=== PATIENT | female | born 1995 | race Hispanic/Latino ===

== ENCOUNTER 2017-04-11 12:13 | Emergency (ER) | payer SELFPAY ==
[2017-04-11 13:23] LABS: #Eosinphils 0.2 thou/uL (0.0-0.7); #Lymphocytes 2.4 thou/uL (1.20-3.40); #Monocytes 0.5 thou/uL (0.11-0.59); #Neutrophils 5.7 thou/uL (1.40-6.50); %Basophils 0.6 % (0.0-1.0); %Eosinophils 2.1 % (0.0-10.0); %Lymphocytes 27.5 % (21.0-51.0); %Monocytes 5.4 % (0.0-10.0); Hematocrit 48.2 % (36.0-47.0); Mean Platelet Volume 7.1 fL (7.4-10.4); Red Blood Cell (RBC) Count 5.41 mill/uL (4.20-5.40); White Blood Cell (WBC) Count 8.8 thou/uL (4.8-10.8)
[2017-04-11 13:46] LABS: Anion Gap 11 mmol/L (10-20); BUN (Urea Nitrogen) 8 mg/dL (7.0-18.7); Calc. Creatinine Clearance 0 mL/min (70-130); Calcium 9.6 mg/dL (7.8-10.44); Carbon Dioxide 25 mmol/L (22-29); Chloride 99 mmol/L (98-107); Estimated GFR-MDRD Greater than 90; Lipase 36 U/L (8-78)
[2017-04-11 13:54] LABS: Bilirubin Negative (Negative); Blood, Urine Large (Negative); Glucose, Urine (Dipstick) >=1000 mg/dL (Negative); Ketone, Urine Trace mg/dL (Negative); Nitrite Positive (Negative); Protein, Urine (Dipstick) 30 mg/dL (Neg-Trace); Urobilinogen 0.2 mg/dL (0.2-1.0)
[2017-04-11 14:00] LABS: Bacteria/HPF 3+ HPF (None Seen); Hyaline Casts/LPF 0-3 HYALINE CAST LPF (0-3 Hyaline); RBC/HPF GREATER THAN 50-TNTC HPF (0-3); Squamous Epithelial 0-3 HPF (0-3); WBC/HPF 21-50 HPF (0-3)
== END 2017-04-11 16:35 | disposition home or self-care (01) ==
LOC: ERS 12:13
DX: N39.0 Urinary tract infection, site not specified (principal); E10.9 Type 1 diabetes mellitus without complications; F41.9 Anxiety disorder, unspecified; F32.9 Major depressive disorder, single episode, unspecified; Z79.4 Long term (current) use of insulin
CPT/HCPCS: 80048; 81003; 81015; 83690; 84703; 85025; 87480; 87491; 87510; 87591; 87660; 96360

== ENCOUNTER 2017-05-24 00:11 | Emergency (ER) | payer SELFPAY ==
[2017-05-24 00:55] LABS: #Basophils 0.1 thou/uL (0.0-0.2); #Eosinphils 0.2 thou/uL (0.0-0.7); #Lymphocytes 2.8 thou/uL (1.20-3.40); #Monocytes 0.5 thou/uL (0.11-0.59); #Neutrophils 5.3 thou/uL (1.40-6.50); %Eosinophils 2.2 % (0.0-10.0); %Lymphocytes 31.5 % (21.0-51.0); %Monocytes 5.9 % (0.0-10.0); %Neutrophils 59.3 % (42.0-75.0); Hemoglobin 15.5 g/dL (12.0-16.0); Mean Corpuscular HGB CONC 34.4 g/dL (32.0-36.0); Mean Corpuscular Hemoglobin 30.8 pg (27.0-31.0); Mean Corpuscular Volume 89.6 fl (81.0-99.0); Mean Platelet Volume 7.7 fL (7.4-10.4); Platelet Count 263 thou/uL (130-400); RBC Distribution Width 11.4 % (11.5-14.5); Red Blood Cell (RBC) Count 5.01 mill/uL (4.20-5.40); White Blood Cell (WBC) Count 8.9 thou/uL (4.8-10.8)
[2017-05-24 01:10] LABS: ALT (SGPT) 17 U/L (8-55); AST (SGOT) 14 U/L (5-34); Albumin 4.3 g/dL (3.5-5.0); Alkaline Phosphatase 135 U/L (40-150); Anion Gap 15 mmol/L (10-20); BUN (Urea Nitrogen) 8 mg/dL (7.0-18.7); Bilirubin, Total 0.4 mg/dL (0.2-1.2); Calc. Creatinine Clearance 0 mL/min (70-130); Calcium 9.8 mg/dL (7.8-10.44); Carbon Dioxide 22 mmol/L (22-29); Chloride 96 mmol/L (98-107); Estimated GFR-MDRD 68; Globulin 3.3 g/dL (2.4-3.5); Magnesium 2.1 mg/dL (1.6-2.6); Phosphorus 4.3 mg/dL (2.3-4.7); Potassium 4.2 mmol/L (3.5-5.1); Protein, Total 7.6 g/dL (6.0-8.3); Sodium 129 mmol/L (136-145)
[2017-05-24 01:14] LABS: Glucose 792 mg/dL (70-105)
[2017-05-24] MEDS ORDERED: Insulin Regular 300 UNITS/3 ML VIAL ONE (01:51)
--- NOTE | 2017-05-24 07:59 | RAD ---
RADIOGRAPH CHEST 1 VIEW: HISTORY: A 22-year-old female with fever. FINDINGS: There are no air space densities, pulmonary edema, pneumothorax, or cardiomegaly. The lateral costop hrenic angles are sharp. IMPRESSION: No acute cardiopulmonary findings. coy [] POS: [facility]
[2017-05-25 11:39] LABS: pH (Venous) 7.419 (7.35-7.45)
[2017-05-25 11:40] LABS: Base Excess-Venous 0.5 mmol/L (-30.0-30.0); Bicarbonate (HCO3v) 24.8 mmol/L (1.0-85.0); CO2 Tension (PvCO2) 38.4 mmHg (41.0-51.0); Calcium, Ionized 1.16 mmol/L (1.12-1.32); Hemoglobin - Calc 16.7 g/dL (12.0-18.0); Potassium 4.1 mmol/L (3.4-4.7)
== END 2017-05-24 03:06 ==
LOC: ERS 00:11
DX: E10.65 Type 1 diabetes mellitus with hyperglycemia (principal); F41.9 Anxiety disorder, unspecified; F32.9 Major depressive disorder, single episode, unspecified; E78.5 Hyperlipidemia, unspecified; Z79.4 Long term (current) use of insulin
CPT/HCPCS: 36416; 71045; 80053; 82010; 82330; 82435; 82803; 83735; 84100; 84132; 84295; 85014; 85025; 96361; 96374; J1815

== ENCOUNTER 2017-06-08 12:15 | Inpatient (IN) | payer SELFPAY ==
--- NOTE | 2017-06-08 14:40 | RAD ---
PORTABLE AP CHEST: Date: 06/08/17 HISTORY: Cough and congestion. History of Type 1 diabetes mellitus. COMPARISON: 05/24/17. FINDINGS: Cardiac silhouette and pulmonary vasculature are within normal limits. Lungs are clear. There is an a eugenio of increased density at the left lung base, which is probably related to overlying soft tissue de nsity as opposed to infiltrate. Osseous structures are intact. IMPRESSION: Ill-defined area of increased density at the left lung base, which is thought to most likely be artif actual from overlying soft tissue density. If patient's symptoms persist, follow-up imaging is advised. Lungs are otherwise clear. POS: [facility]
[2017-06-08 14:49] LABS: #Basophils 0.1 thou/uL (0.0-0.2); #Eosinphils 0.1 thou/uL (0.0-0.7); #Lymphocytes 2.4 thou/uL (1.20-3.40); #Monocytes 0.7 thou/uL (0.11-0.59); #Neutrophils 7.6 thou/uL (1.40-6.50); %Basophils 0.7 % (0.0-1.0); %Eosinophils 1.1 % (0.0-10.0); %Lymphocytes 22.2 % (21.0-51.0); %Monocytes 6.7 % (0.0-10.0); %Neutrophils 69.3 % (42.0-75.0); Hemoglobin 14.4 g/dL (12.0-16.0); Mean Corpuscular HGB CONC 34.1 g/dL (32.0-36.0); Mean Corpuscular Hemoglobin 30.8 pg (27.0-31.0); Mean Corpuscular Volume 90.4 fl (81.0-99.0); Mean Platelet Volume 7.2 fL (7.4-10.4); Platelet Count 420 thou/uL (130-400); RBC Distribution Width 11.1 % (11.5-14.5); Red Blood Cell (RBC) Count 4.67 mill/uL (4.20-5.40); White Blood Cell (WBC) Count 10.9 thou/uL (4.8-10.8)
[2017-06-08 14:53] LABS: Base Excess-Venous 1.3 mmol/L (-30.0-30.0); Bicarbonate (HCO3v) 25.6 mmol/L (1.0-85.0); CO2 Tension (PvCO2) 38.7 mmHg (41.0-51.0); Calcium, Ionized 1.09 mmol/L (1.12-1.32); Hemoglobin - Calc 15.7 g/dL (12.0-18.0); O2 Tension (PvO2) 55.3 mmHg (35.0-45.0); T. Carbon Dioxide 26.8 mmol/L (1.0-85.0); pH (Venous) 7.428 (7.35-7.45); vO2 Saturation-calc 89.2 % (0.0-100.0)
[2017-06-08 14:58] LABS: BHCG - Serum Negative (NEGATIVE); Pregs Control Background? CLEAR/WHITE (CLR/WHITE); Pregs Control Bar Appear? YES (CONTROL BAR)
[2017-06-08] MEDS ORDERED: Insulin Regular 300 UNITS/3 ML VIAL ONE (15:04)
[2017-06-08 15:14] LABS: ALT (SGPT) 15 U/L (8-55); AST (SGOT) 9 U/L (5-34); Albumin 3.7 g/dL (3.5-5.0); Alkaline Phosphatase 165 U/L (40-150); Anion Gap 19 mmol/L (10-20); BUN (Urea Nitrogen) 4 mg/dL (7.0-18.7); Bilirubin, Total 0.3 mg/dL (0.2-1.2); Calc. Creatinine Clearance 0 mL/min (70-130); Calcium 10.2 mg/dL (7.8-10.44); Carbon Dioxide 25 mmol/L (22-29); Chloride 94 mmol/L (98-107); Estimated GFR-MDRD Greater than 90; Globulin 4.6 g/dL (2.4-3.5); Glucose 485 mg/dL (70-105); Lipase 37 U/L (8-78); Magnesium 1.8 mg/dL (1.6-2.6); Phosphorus 3.5 mg/dL (2.3-4.7); Protein, Total 8.3 g/dL (6.0-8.3); Sodium 134 mmol/L (136-145)
[2017-06-08] MEDS ORDERED: Ketorolac Tromethamine 30 MG/ML VIAL ONE (15:35)
[2017-06-08] MEDS ORDERED: CCU Electrolyte Replacement 1 EACH IVPB ONE (15:45)
[2017-06-08] MEDS ORDERED: D5 1/2 NS w/20 mEq KCL 1,000 ML IV PRN (15:45)
[2017-06-08] MEDS ORDERED: Dextrose 50% Abboject 50 ML SYRINGE SLOW IVP PRN (15:45)
[2017-06-08] MEDS ORDERED: Sodium Chloride 0.9% 1,000 ML IV PRN ×4 (15:45)
[2017-06-08] MEDS ORDERED: NS 0.9% w/ 20 MEQ KCL 1,000 ML IV PRN ×2 (15:45)
[2017-06-08] MEDS ORDERED: Dextrose 5% in Water 1,000 ML IV PRN (15:45)
[2017-06-08] MEDS ORDERED: Ondansetron HCl/PF 4 MG/2 ML Vial IVP PRN (15:45)
[2017-06-08] MEDS ORDERED: Insulin Regular 100 units/100 ml in NS IVPB SCH (15:45)
[2017-06-08] MEDS ORDERED: Dextrose 5 %-0.45 % NaCl 1,000 ML IV PRN (15:45)
[2017-06-08] MEDS ORDERED: Potassium Phosphate 12 MMOL in Sodium Chloride 0.9% 250 ML 250 ML IV PRN (15:52)
[2017-06-08] MEDS ORDERED: Potassium Phosphate 15 MMOL in Sodium Chloride 0.9% 250 ML 250 ML IV PRN (15:52)
[2017-06-08] MEDS ORDERED: Magnesium Oxide 400 MG TAB PO PRN ×2 (15:52)
[2017-06-08] MEDS ORDERED: Magnesium 2 GM/NS 0.9% 100 ML 2 GM in Premix Bag 1 BAG IVPB PRN (15:52)
[2017-06-08] MEDS ORDERED: Potassium Chloride 40 MEQ in Sodium Chloride 0.9% 250 ML 250 ML IVPB PRN (15:52)
[2017-06-08] MEDS ORDERED: Potassium Chloride 40 MEQ in Premix Bag 1 BAG IVPB PRN (15:52)
[2017-06-08] MEDS ORDERED: CCU ELECTROLYTE REPLACEMENT PROTOCOL FS PRN (15:52)
[2017-06-08] MEDS ORDERED: Potassium Chloride 20 MEQ TAB PO PRN (15:52)
[2017-06-08] MEDS ORDERED: Potassium Phosphate 9 MMOL in Sodium Chloride 0.9% 100 ML IVPB PRN (15:52)
[2017-06-08] MEDS ORDERED: D5 1/2 NS w/20 mEq KCL 1,000 ML ONE (16:10)
[2017-06-08 16:16] LABS: Bilirubin Negative (Negative); Blood, Urine Negative (Negative); Clarity CLEAR (Clear); Glucose, Urine (Dipstick) >=1000 mg/dL (Negative); Leukocyte Negative (Negative); Nitrite Negative (Negative); Protein, Urine (Dipstick) Negative (Neg-Trace); Specific Gravity, Urine 1.041 (1.002-1.036)
[2017-06-08] MEDS ORDERED: 1/2 NS w/KCL 20 mEq 1,000 ML IV SCH (17:45)
[2017-06-08 18:53] LABS: Hemoglobin A1c 14.7 % (4.0-6.0)
[2017-06-08] MEDS ORDERED: Acetaminophen 325 MG TAB PO PRN (19:27)
--- NOTE | 2017-06-08 19:30 | RAD ---
CHEST TWO VIEWS: 06/08/17 HISTORY: Cough and sore throat. COMPARISON: A portable chest examination done earlier today. Heart size is within normal limits. Some minimal parenchymal changes within the lingula and compatibl e with early lingular infiltrate. IMPRESSION: Lingular pneumonia. POS: [facility]
[2017-06-08 19:32] LABS: Amphetamine Not Detected (NotDetected); Barbiturates Screen Not Detected (NotDetected); Benzodiazepine Screen Not Detected (NotDetected); Cocaine Metabolite Screen Not Detected (NotDetected); Medtox Control Line Valid? VALID (VALID); Medtox Reader # READER 4; Methadone Not Detected (NotDetected); Methamphetamine Not Detected (NotDetected); Opiate Screen Not Detected (NotDetected); Oxycodone Screen Not Detected (NotDetected); Phencyclidine (PCP) Not Detected (NotDetected); THC/Cannabinoid Screen Not Detected (NotDetected); Tricyclic Screen Not Detected (NotDetected)
--- NOTE | 2017-06-08 20:05 | HP-2 ---
DATE OF ADMISSION: 06/08/2017 PATIENT SEEN: At 15:38 CODE STATUS: FULL. ATTENDING PHYSICIAN: Dr. Jaime Gallego. RESIDENT: Rhiannon Berger, PGY-3. CODE STATUS: Full. PRIMARY CARE PHYSICIAN: None, was previously seeing Dr. Obregon 2 years ago. HISTORY OF PRESENT ILLNESS: This is a pleasant 22-year-old female with past medical history significant for diabetes mellitus type 1 as well as recurrent DKA, who presents to the Emergency Dep artment with 2 weeks of symptoms of illness. The patient states that she has been ill for 2 weeks an d very ill for 1 week. She reports symptoms of nausea, lightheadedness, temperature of 100.2 at home as well as a cough. The patient states that her father has also been sick with very similar symptom s. Her father is also a type 1 diabetic. Patient states that she has been out of insulin since 03/01. She states that she has not been able to afford medications since losing her job. She is unins ured however, she is currently attempting to qualify for disability and apply for Medicaid so that [facility] is able to obtain her medications. The patient was in the Emergency Department approximately a cou ple of weeks ago for hyperglycemia. She states that for her symptoms at home she has been taking ove [id number] cold and flu medications. The patient states that she has not seen a doctor for approx imately 2 years. She was previously seen by Dr. Obregon through her childhood to about 2 years ago. PAST MEDICAL HISTORY: 1. Diabetes mellitus type 1, multiple hospitalizations for DKA throughout her lifetime. 2. History of hypertension, not currently on medications. PAST SURGICAL HISTORY: None. CURRENT MEDICATIONS: Currently not taking any. However, patient was previously on Levemir 47 units b.i.d. as well as 15 units of Humalog prior to meals along with a sliding scale. SOCIAL HISTORY: Patient denies any drug or tobacco use. She states that she previously used to drin k alcohol; however, knows this is bad for her diabetes, so she has stopped. PAST FAMILY HISTORY: Patient's father has type 1 diabetes as well as her maternal and paternal grand mother. REVIEW OF SYSTEMS: Ten point review of systems was conducted. Pertinent positives mentioned in the HPI, all others are negative. PHYSICAL EXAMINATION: VITAL SIGNS: T-max 98.1, respirations 21, heart rate 106, blood pressure 124/81, O2 sat 98% on room air. GENERAL: Patient is alert and oriented x3. She does not appear in acute distress. She is appropria tely interactive during the interview and exam. Appropriately dressed and appears approximately stat ed age. She does appear somewhat diaphoretic. EYES: Pupils equally round and reactive to light. Nonicteric. Extraocular muscles intact. ENT: Nasal mucosa moist without bogginess. Moist mucous membranes. Oropharynx clear. CARDIOVASCULAR: Regular rate and rhythm, no murmurs, gallops, clicks or rubs. Radial pulses and ped al pulses +2. RESPIRATIONS: Mild rhonchi noted on exam bilaterally. ABDOMEN: Nontender, nondistended. Bowel sounds present in all 4 quadrants. EXTREMITIES: No cyanosis, clubbing or edema. SKIN: No rashes or lesions. No cyanosis. NEUROLOGIC: No focal deficits. PSYCHIATRIC: Mood and affect appropriate. Judgment and insight are intact. LABORATORY DATA: White count 10.9, hemoglobin 14.4, hematocrit 42.2, platelets 420. Sodium 134, pot assium 4, chloride 94, bicarbonate 25, BUN 4, creatinine 0.74, glucose 485, calcium 10.2, AST 9, ALT 15, alkaline phosphatase 165, total bilirubin 0.3, total protein 8.3, albumin 3.7, anion gap of 19. Beta hydroxybutyrate of 0.48. The last point of care glucose was 205. Flu A and B were negative. Chest x-ray shows a right hilar density which is likely to be an artifact. ASSESSMENT AND PLAN: This is a 22-year-old female with. 1. Hyperosmolar hyperglycemic state. We will admit patient to the [facility] and transfer to Medical when patient is off the insulin drip. We will continue the insulin drip until the anion gap as close as currently 19. We will then start subcutaneous insulin and continue the drip for 2 more hours and the n discontinue the drip. The patient can start eating when off of the drip. The patient is currently on step 4 of the diabetic ketoacidosis protocol. She is receiving D5 half normal saline at rate of 250 with potassium chloride replacement. Her last Accu-Chek was 208. Her insulin drip is running at 2 units per hour. We will start subcu. We will check a BMP q.4 h x2. We will also continue Accu-C heks q.1 hour while on insulin drip and continue checking glucose every 2-4 hours overnight. We will also check an A1c for the patient. The patient states that she has plans to get assistance with her insulin from her parents when she is discharged from the hospital. 3. Possible density on chest x-ray noted that this is likely an artifact, has discontinued antibioti cs in the Emergency Department. We will obtain a 2-view chest x-ray. 4. Hypertension. The patient states that she was on a pill; however, she does not remember what the name of it was and is not currently on it. We will monitor her blood pressure and start medications as needed. 5. Deep venous thrombosis prophylaxis. We will apply SCDs. The patient is a low risk for deep veno us thrombosis. DISPOSITION AND LENGTH OF STAY: Approximately 1-2 days. Symptomatic medications will be provided. History and physical exam as well as management was discussed with Dr. Gallego.
[2017-06-08 20:34] LABS: Anion Gap 18 mmol/L (10-20); BUN (Urea Nitrogen) 5 mg/dL (7.0-18.7); Calc. Creatinine Clearance 0 mL/min (70-130); Calcium 9.2 mg/dL (7.8-10.44); Carbon Dioxide 23 mmol/L (22-29); Chloride 100 mmol/L (98-107); Estimated GFR-MDRD Greater than 90; Glucose 279 mg/dL (70-105); Sodium 137 mmol/L (136-145)
[2017-06-08] MEDS ORDERED: Insulin Detemir 100 UNITS/ML 15 UNITS in Admixture Fee 1 EACH SC SCH (21:00)
[2017-06-08] MEDS: HumaLOG 300 UNITS/3 ML VIAL SC PRN (21:21)
[2017-06-08 23:55] VITALS: BMI 24.1
[2017-06-08 23:58] LABS: Anion Gap 14 mmol/L (10-20); BUN (Urea Nitrogen) 5 mg/dL (7.0-18.7); Calc. Creatinine Clearance 140 mL/min (70-130); Calcium 8.6 mg/dL (7.8-10.44); Carbon Dioxide 26 mmol/L (22-29); Chloride 103 mmol/L (98-107); Estimated GFR-MDRD Greater than 90; Glucose 184 mg/dL (70-105); Potassium 3.7 mmol/L (3.5-5.1); Sodium 139 mmol/L (136-145)
[2017-06-09] MEDS: HumaLOG 300 UNITS/3 ML VIAL SC PRN ×5 (00:38→20:37)
[2017-06-09] MEDS: Sodium Chloride 0.9% 1,000 ML IV SCH ×2 (00:39→10:25)
[2017-06-09] MEDS: Guaifenesin DM 100-10/5 ML UDCUP PO PRN ×3 (02:09→20:42)
[2017-06-09 05:03] LABS: Anion Gap 10 mmol/L (10-20); BUN (Urea Nitrogen) 5 mg/dL (7.0-18.7); Calc. Creatinine Clearance 159 mL/min (70-130); Calcium 8.5 mg/dL (7.8-10.44); Carbon Dioxide 24 mmol/L (22-29); Chloride 106 mmol/L (98-107); Estimated GFR-MDRD Greater than 90; Glucose 177 mg/dL (70-105); Potassium 3.6 mmol/L (3.5-5.1); Sodium 136 mmol/L (136-145)
[2017-06-09] MEDS ORDERED: Insulin Detemir 100 UNITS/ML 15 UNITS in Admixture Fee 1 EACH SC SCH (08:00)
--- NOTE | 2017-06-09 09:00 | PDOC.FM ---
- Subjective Subjective: Patient doing well this AM. No significant overnight events. She is feeling much improved from yesterday. We discussed her insurance status and options for paying for insulin. She does not have insurance, and her parents are willing to help, but she is not sure what they would be able to afford. Discussed transitioning to insulin 70/30 as it is an affordable option. Patient will be in hospital additional day as this gets titrated. - Objective MAR Reviewed: Yes Vital Signs & Weight: Vital Signs (12 hours) Temp Pulse Resp BP Pulse Ox 06/09/17 08:09 98.7 F 90 24 H 131/87 94 L 06/09/17 04:45 98.5 F 93 16 123/71 06/09/17 00:30 98.9 F 100 20 95 Weight Weight 57.1 kg Result Diagrams: 06/08/17 14:41 06/09/17 04:22 EKG Reviewed by me: Yes Radiology Reviewed by me: Yes <Sherrie Hadley - Last Filed: 06/09/17 11:54> - Objective Vital Signs & Weight: Vital Signs (12 hours) Temp Pulse Resp BP Pulse Ox 06/09/17 13:00 97.6 F 106 H 18 147/64 H 94 L Weight Weight 57.1 kg I&O: 06/08/17 06/09/17 06/10/17 06:59 06:59 06:59 Intake Total 300 Balance 300 Result Diagrams: 06/08/17 14:41 06/09/17 04:22 <Josefina Juarez - Last Filed: 06/09/17 21:42> Phys Exam - Physical Examination Constitutional: NAD HEENT: moist MMs Neck: supple Respiratory: no wheezing coughing on exam Cardiovascular: RRR, no significant murmur Gastrointestinal: soft, no distention, positive bowel sounds Musculoskeletal: no edema Neurological: non-focal Psychiatric: A&O x 3 Skin: no rash, cap refill <2 seconds <Sherrie Hadley - Last Filed: 06/09/17 11:54> Dx/Plan (1) Type 1 diabetes mellitus with hyperosmolarity without nonketotic hyperglycemic hyperosmolar coma Code(s): E10.69 - TYPE 1 DIABETES MELLITUS WITH OTHER SPECIFIED COMPLICATION; E10.65 - TYPE 1 DIABETES MELLITUS WITH HYPERGLYCEMIA Status: Acute (2) DM type 1 (diabetes mellitus, type 1) Status: Acute (3) HTN (hypertension) Code(s): I10 - ESSENTIAL (PRIMARY) HYPERTENSION Status: Acute (4) Noncompliance Code(s): Z91.19 - PATIENT'S NONCOMPLIANCE W OTH MEDICAL TREATMENT AND REGIMEN Status: Acute - Plan Plan: 1. Hyperosmotic hyperglycemic state (HHS) - Anion gap without metabolic acidosis or elevation in beta hydroxybutyrate - On insulin drip for short period of time before anion gap closed - BG >500 on admission, 208 after 10 U of insulin - Patient taken off the drip and transitioned to SC insulin - 15 U SC BID, Moderate SSI - Patient has been off of insulin for several months - Will switch to insulin 70/30 as it is more affordable. Plan to start tonight. 0.3-0.5 units/kg and will divide 2/3 AM, 1/3 PM 2. Diabetes mellitus type I - Has not been on insulin since February - Diagnosed in late teens 3. HTN - Has not taken BP in months and cannot remember which medication she was taking - BP this AM 131/87 4. Lingular PNA - Start patient on augmentin - Tessalon pearles PRN/Robitussin - Ibuprofen for pain secondary to coughing <Sherrie Hadley - Last Filed: 06/09/17 11:54> Attending Addendum - Attending Addendum I personally evaluated the patient and discussed the management with Dr. Hadley at 11 am. I agree with the History, Examination, Assessment and Plan documented above with any addition or exceptions noted below. T1DM, uncontrolled- non-compliance with meds. Unable to affort long acting so will transition to 70/30 and titrate up. CAP- start abx <Josefina Juarez - Last Filed: 06/09/17 21:42>
[2017-06-09] MEDS ORDERED: guaiFENesin/Codeine Phosphate 200 mg/20 mg 10 ml UD Cup PO PRN (12:04)
[2017-06-09] MEDS ORDERED: Azithromycin 250 MG TAB PO SCH (12:07)
[2017-06-09] MEDS ORDERED: Ibuprofen 800 MG TAB PO SCH (12:15)
[2017-06-09] MEDS ORDERED: Cefdinir 300 MG CAP PO SCH (14:00)
[2017-06-09] MEDS ORDERED: Sodium Chloride 0.9% 10 ML ONE (20:36)
[2017-06-09] MEDS: Cefdinir 300 MG CAP PO SCH (20:40)
[2017-06-09] MEDS ORDERED: Insulin NPH/Reg Insulin Hm 300 UNITS/3 ML VIAL SC SCH (21:00)
[2017-06-10] MEDS: HumaLOG 300 UNITS/3 ML VIAL SC PRN ×5 (00:36→19:58)
[2017-06-10 06:06] LABS: Anion Gap 10 mmol/L (10-20); BUN (Urea Nitrogen) 8 mg/dL (7.0-18.7); Calc. Creatinine Clearance 135 mL/min (70-130); Calcium 9.3 mg/dL (7.8-10.44); Carbon Dioxide 27 mmol/L (22-29); Chloride 104 mmol/L (98-107); Estimated GFR-MDRD Greater than 90; Glucose 266 mg/dL (70-105); Potassium 4.1 mmol/L (3.5-5.1); Sodium 137 mmol/L (136-145)
--- NOTE | 2017-06-10 07:11 | PDOC.FM ---
- Subjective Subjective: Patient doing well this AM. No significant overnight events. She has been feeling hot and woke up in sweat. Her cough has improved with medications. She states that her mom is going to help her with her insulin. - Objective MAR Reviewed: Yes Vital Signs & Weight: Vital Signs (12 hours) Temp Pulse Resp Pulse Ox 06/10/17 00:35 20 06/09/17 20:00 98.1 F 100 18 98 Weight Weight 57.1 kg I&O: 06/09/17 06/10/17 06/11/17 06:59 06:59 06:59 Intake Total 300 Balance 300 Result Diagrams: 06/08/17 14:41 06/10/17 05:32 EKG Reviewed by me: Yes Radiology Reviewed by me: Yes <Sherrie Hadley - Last Filed: 06/10/17 08:01> - Objective Vital Signs & Weight: Vital Signs (12 hours) Temp Pulse Resp BP 06/10/17 08:53 98.1 F 90 18 129/86 06/10/17 08:47 98.1 F 90 20 06/10/17 00:35 20 Weight Weight 57.1 kg I&O: 06/09/17 06/10/17 06/11/17 06:59 06:59 06:59 Intake Total 300 Balance 300 Result Diagrams: 06/08/17 14:41 06/10/17 05:32 <Jaime Gallego - Last Filed: 06/10/17 09:41> Phys Exam - Physical Examination Constitutional: NAD Hot to touch HEENT: moist MMs Neck: supple Respiratory: no wheezing, clear to auscultation bilateral Cardiovascular: RRR, no significant murmur Gastrointestinal: soft, no distention Musculoskeletal: no edema, pulses present Neurological: non-focal, moves all 4 limbs Psychiatric: A&O x 3 Skin: no rash, cap refill <2 seconds <Sherrie Hadley - Last Filed: 06/10/17 08:01> Dx/Plan (1) Type 1 diabetes mellitus with hyperosmolarity without nonketotic hyperglycemic hyperosmolar coma Code(s): E10.69 - TYPE 1 DIABETES MELLITUS WITH OTHER SPECIFIED COMPLICATION; E10.65 - TYPE 1 DIABETES MELLITUS WITH HYPERGLYCEMIA Status: Acute (2) DM type 1 (diabetes mellitus, type 1) Status: Acute (3) HTN (hypertension) Code(s): I10 - ESSENTIAL (PRIMARY) HYPERTENSION Status: Acute (4) Noncompliance Code(s): Z91.19 - PATIENT'S NONCOMPLIANCE W OTH MEDICAL TREATMENT AND REGIMEN Status: Acute (5) Community acquired pneumonia Code(s): J18.9 - PNEUMONIA, UNSPECIFIED ORGANISM Status: Acute - Plan Plan: 1. Hyperosmotic hyperglycemic state (HHS) - Anion gap without metabolic acidosis or elevation in beta hydroxybutyrate - On insulin drip for short period of time before anion gap closed - BG >500 on admission, 208 after 10 U of insulin - Patient taken off the drip and transitioned to SC insulin - 15 U SC BID, Moderate SSI - Patient has been off of insulin for several months - Will switch to insulin 70/30 as it is more affordable. Plan to start tonight. 0.3-0.5 units/kg and will divide 2/3 AM, 1/3 PM - BG this AM 266; titrate insulin 2. Diabetes mellitus type I - Has not been on insulin since February - Diagnosed in late teens 3. HTN - Has not taken BP in months and cannot remember which medication she was taking - BP this AM 147/64 - Continue to monitor 4. Lingular PNA - Start patient on cefdinir and azithromycin - Tessalon daneles PRN/Robitussin - Ibuprofen for pain secondary to coughing - Tylenol for fever <Sherrie Hadley - Last Filed: 06/10/17 08:01> Attending Addendum - Attending Addendum I personally evaluated the patient and discussed the management with Dr. Hadley I agree with the History, Examination, Assessment and Plan documented above with any addition or exceptions noted below. Gap has closed no longer on gtt. Will titrate 70/30 over the next several days and discharge patient on new home regimen. Continue cefdinir for lingular PNA. Afebrile overnight, maintaining sats on room air. <Jaime Gallego - Last Filed: 06/10/17 09:41>
[2017-06-10] MEDS: Azithromycin 250 MG TAB PO SCH (08:56)
[2017-06-10] MEDS ORDERED: Insulin NPH/Reg Insulin Hm 300 UNITS/3 ML VIAL SC SCH ×2 (09:00→17:00)
[2017-06-10] MEDS: Cefdinir 300 MG CAP PO SCH ×2 (10:00→21:14)
[2017-06-10] MEDS ORDERED: Azithromycin 250 MG TAB PO ONE (12:07)
[2017-06-10] MEDS: Ibuprofen 800 MG TAB PO PRN ×2 (12:15→19:51)
[2017-06-10] MEDS: Guaifenesin DM 100-10/5 ML UDCUP PO PRN ×2 (13:24→19:51)
[2017-06-11] MEDS: HumaLOG 300 UNITS/3 ML VIAL SC PRN ×4 (00:37→16:22)
[2017-06-11 05:46] LABS: Anion Gap 12 mmol/L (10-20); BUN (Urea Nitrogen) 14 mg/dL (7.0-18.7); Calc. Creatinine Clearance 128 mL/min (70-130); Carbon Dioxide 23 mmol/L (22-29); Chloride 104 mmol/L (98-107); Estimated GFR-MDRD Greater than 90; Glucose 321 mg/dL (70-105); Potassium 3.8 mmol/L (3.5-5.1); Sodium 135 mmol/L (136-145)
--- NOTE | 2017-06-11 06:26 | PDOC.FM ---
- Subjective Subjective: pt reports doing fine this morning. Denies any fever or chills. Denies any SOB. Denies any n/v/d/c. Pt reports doing fine. Just had questions about her insulin regimen. Discussed with her we are still figuring out what dose of 70/30 she will need. Discussed with her we want her sugars in the low 200's to 100's. No other concerns at this time. - Objective Vital Signs & Weight: Vital Signs (12 hours) Temp Pulse Resp BP BP Pulse Ox 06/11/17 00:35 98.1 F 80 16 107/61 97 06/10/17 19:40 98.4 F 96 20 139/90 96 Weight Weight 57.1 kg I&O: 06/09/17 06/10/17 06/11/17 06:59 06:59 06:59 Intake Total 300 Balance 300 Result Diagrams: 06/08/17 14:41 06/11/17 05:25 Radiology Reviewed by me: Yes (lingula pneumonia) <Daniel Ortiz - Last Filed: 06/11/17 08:59> - Objective Vital Signs & Weight: Vital Signs (12 hours) Temp Pulse Resp BP Pulse Ox 06/11/17 11:41 98.0 F 87 18 123/76 06/11/17 08:02 98.8 F 80 20 117/79 99 06/11/17 07:28 98.1 F 80 16 Weight Weight 57.1 kg I&O: 06/10/17 06/11/17 06/12/17 06:59 06:59 06:59 Intake Total 300 420 Balance 300 420 Result Diagrams: 06/08/17 14:41 06/11/17 05:25 <Phuc Rdz - Last Filed: 06/11/17 12:39> Phys Exam - Physical Examination HEENT: PERRLA, moist MMs, oral pharynx no lesions Neck: no nodes, full ROM Respiratory: no wheezing, no rales, no rhonchi, clear to auscultation bilateral Cardiovascular: RRR, no significant murmur, no rub Gastrointestinal: soft, non-tender, no distention, positive bowel sounds Musculoskeletal: no edema, pulses present Neurological: non-focal, moves all 4 limbs Lymphatic: no nodes Psychiatric: normal affect Skin: no rash, normal turgor, cap refill <2 seconds <Daniel Ortiz - Last Filed: 06/11/17 08:59> Dx/Plan (1) DM type 1 (diabetes mellitus, type 1) Status: Acute (2) Community acquired pneumonia Code(s): J18.9 - PNEUMONIA, UNSPECIFIED ORGANISM Status: Acute (3) HTN (hypertension) Code(s): I10 - ESSENTIAL (PRIMARY) HYPERTENSION Status: Acute (4) Type 1 diabetes mellitus with hyperosmolarity without nonketotic hyperglycemic hyperosmolar coma Code(s): E10.69 - TYPE 1 DIABETES MELLITUS WITH OTHER SPECIFIED COMPLICATION; E10.65 - TYPE 1 DIABETES MELLITUS WITH HYPERGLYCEMIA Status: Acute (5) Noncompliance Code(s): Z91.19 - PATIENT'S NONCOMPLIANCE W OTH MEDICAL TREATMENT AND REGIMEN Status: Acute - Plan Plan: 1. Hyperosmotic hyperglycemic state (HHS) - Anion gap without metabolic acidosis. B-hydroxybutyrate elevated - On insulin drip for short period of time before anion gap closed - BG >500 on admission, 208 after 10 U of insulin - Patient taken off the drip and transitioned to SC insulin - Patient has been off of insulin for several months - Will switch to insulin 70/30 as it is more affordable. Plan to start tonight. 0.3-0.5 units/kg and will divide 2/3 AM, 1/3 PM - BG elevated. Anion gap increasing; titrate insulin and adjust regimen accordingly. 2. Diabetes mellitus type I - Has not been on insulin since February - Diagnosed in late teens -Switched to insulin 70/30 so she might be able to afford medications 3. HTN - Has not taken BP in months and cannot remember which medication she was taking - BP this AM 147/64 -Lisinopril would be good option for blood pressure at this time - Continue to monitor 4. Lingular PNA - Start patient on cefdinir and azithromycin - Tessalon pearles PRN/Robitussin - Ibuprofen for pain secondary to coughing - Tylenol for fever -Vital signs stable. Continue to monitor. <Daniel Ortiz - Last Filed: 06/11/17 08:59> Attending Addendum - Attending Addendum I personally evaluated the patient and discussed the management with Dr. Ortiz. I agree with the History, Examination, Assessment and Plan documented above with any addition or exceptions noted below. Patient admitted for a very mild case of HHS, likely mostly hyperglycemia in the setting of noncompliance with medical therapy. Patient reports being a T1 diabetic, but has not taken insulin in months, indicating she is likely a T2 diabetic. Will consult diabetes education, and begin on metformin therapy. She has been started on 70/30 that she can pick remover outpatient and can afford. Her blood sugars are elevated, but under enough control to hopefully prevent repeat hospitalizations if she will continue to take the medications. Likely discharge this afternoon. <Phuc Rdz - Last Filed: 06/11/17 12:39>
[2017-06-11] MEDS ORDERED: Insulin NPH/Reg Insulin Hm 300 UNITS/3 ML VIAL SC SCH ×2 (09:00→14:56)
[2017-06-11] MEDS: Cefdinir 300 MG CAP PO SCH (09:44)
[2017-06-11] MEDS: Azithromycin 250 MG TAB PO SCH (09:44)
[2017-06-11] MEDS: metFORMIN 500 MG TAB PO SCH ×2 (10:26→17:45)
[2017-06-11 16:43] VITALS: BP 147/80; TEMP 98.4
[2017-06-11] MEDS ORDERED: metFORMIN 500 MG TAB PO SCH (17:45)
--- NOTE | 2017-06-12 04:18 | DIS-2 ---
DATE OF ADMISSION: 06/08/2017 DATE OF DISCHARGE: 06/11/2017 CONSULTS: None. PROCEDURES PERFORMED: None. IMAGING DATA: Got an initial chest x-ray, read as ill-defined area of increased density at the left lung base, which was thought most likely to be artificial from overlying soft tissue density. If pat ient's symptoms persist, follow up imaging is advised. Lungs are otherwise clear. Repeat chest x-ra y the same day showed lingular pneumonia. DISCHARGE DIAGNOSES: 1. Diabetes mellitus type 1 with HHS and nonketotic hyperglycemic hyperosmolar state. 2. Community-acquired pneumonia and lingular pneumonia. 3. Hypertension. 4. Non-compliance. DISCHARGE MEDICATIONS: Azithromycin 250 mg p.o. daily for 4 more days; Omnicef 300 mg p.o. b.i.d. fo r 7 more days; metformin 500 mg p.o. b.i.d. with meals and then Novolin 70/30, 22 units in the mornin g and 15 units at night was educated on checking her sugars then titrating her Novolin as needed. Al so, lisinopril 5 mg once daily. HISTORY OF PRESENT ILLNESS AND BRIEF HOSPITAL COURSE: This is a 22-year-old female with pas t medical history for diabetes type 1, who has had recurrent episodes of DKA, came to the ER with 2 w eeks of illness; said that she had nausea, lightheadedness, temperature of 102 and a cough as well; s aid she has not been able to report her medications and has not been taking any insulin for a long ti me, but has been checking her sugars and trying to control her diabetes with diet at home and taking [id number] cold and flu medications for the last few weeks. She was found to have an anion gap of 19. Her initial sugar was found to be around 500. She was started on insulin drip and by the ti me we got her admitted, her last Accu-Chek was 208. Patient had said that she had been on blood pres sure medication at an outside hospital. We trended her blood pressure. It was overall stable while here. There were a few elevations above 130, above 140. On the day of discharge, we decided to star t her on just low dose lisinopril as this would help protect her kidney. On admission, her hemoglobi n A1c was found to be 14.7. She was started on insulin drip. Her anion gap was seen close by 11:00 that night on the day of admission. She was then transitioned to Novolin 70/30 giving two-third of t he dose in the morning and one-third of the dose in the evening. We will continue the need to titrat e up this dose for the next few days. On day of discharge, her blood sugars were sitting around the 200s-240s and discussed with her that she would need to continue to check her blood sugars at home an d titrate and follow up with [facility] for her sugars. By the day of discharge, she had no symp toms. Vital signs were stable. Oxygen saturation was fine, did not really have any trouble coughing , but we continued antibiotic therapy for the lingular pneumonia. On admission, her beta hydroxybuty rate was mildly elevated at 0.48. Discussed with patient that she will need to follow up with the [facility] to get set up with care and to continue titrating up her medications. DISPOSITION: Stable. DISCHARGE LOCATION: Home. DISCHARGE ACTIVITY: As tolerated. DISCHARGE DIET: Diabetic diet. DISCHARGE FOLLOWUP: She will need to follow up with [facility] within next week and set up an ap pointment to continue managing her diabetes.
== END 2017-06-11 18:48 | disposition home or self-care (01) | DRG 637 ==
LOC: ERS 12:15 → 3SE 17:01
PROVIDERS: ADMIT Family Medicine; ATTEND Family Medicine
DX: E10.69 Type 1 diabetes mellitus with other specified complication (principal); J18.9 Pneumonia, unspecified organism; E72.51 Non-ketotic hyperglycinemia; E10.65 Type 1 diabetes mellitus with hyperglycemia; I10 Essential (primary) hypertension; Z79.4 Long term (current) use of insulin; Z91.120 Patient's intentional underdosing of medication regimen due to financial hardship; E78.5 Hyperlipidemia, unspecified; F41.9 Anxiety disorder, unspecified; F32.9 Major depressive disorder, single episode, unspecified
CPT/HCPCS: 36415; 36416; 71045; 71046; 80048; 80053; 80306; 81003; 82010; 82330; 82803; 83036; 83690; 83735; 83930; 84100; 84703; 85025; 96365; 96366; 96367; 96368; 96375; A4216; J0696; J1815; J1885; J2405; J3370; J7050

== ENCOUNTER 2017-07-16 08:34 | Emergency (ER) | payer SELFPAY ==
[2017-07-16] MEDS ORDERED: Lidocaine 1% w/Epinephrine 1:100K 20 ML VIAL ONE (09:03)
[2017-07-16] MEDS ORDERED: Sodium Bicarbonate 2.5 MEQ/5 ML VIAL ONE (09:06)
[2017-07-16] MEDS ORDERED: HYDROcodone/Acetaminophen 5/325 mg Tablet ONE (09:12)
== END 2017-07-16 10:24 | disposition home or self-care (01) ==
LOC: ERS 08:34
DX: N76.4 Abscess of vulva (principal); I10 Essential (primary) hypertension; E78.5 Hyperlipidemia, unspecified; E10.9 Type 1 diabetes mellitus without complications; F41.9 Anxiety disorder, unspecified; F32.9 Major depressive disorder, single episode, unspecified
CPT/HCPCS: 56405; J2001

== ENCOUNTER 2018-07-07 17:50 | Emergency (ER) | payer SELFPAY ==
[~2018-07-07 17:50] MED LIST: ISOVUE-370 76%-LOCM 1 ML ONE
[2018-07-07] MEDS ORDERED: Ondansetron ODT 4 MG TAB ONE (18:00)
[2018-07-07] MEDS ORDERED: Ondansetron PF 4 MG/2 ML Vial ONE (18:19)
[2018-07-07 18:22] LABS: #Basophils 0.1 thou/uL (0.0-0.2); #Eosinphils 0.3 thou/uL (0.0-0.7); #Lymphocytes 5.7 thou/uL (1.20-3.40); #Monocytes 0.7 thou/uL (0.11-0.59); #Neutrophils 9.9 thou/uL (1.40-6.50); %Basophils 0.8 % (0.0-1.0); %Eosinophils 1.7 % (0.0-10.0); %Monocytes 4.1 % (0.0-10.0); %Neutrophils 59.4 % (42.0-75.0); Hemoglobin 15.6 g/dL (12.0-16.0); Mean Corpuscular HGB CONC 33.8 g/dL (32.0-36.0); Mean Corpuscular Hemoglobin 31.2 pg (27.0-31.0); Mean Corpuscular Volume 92.4 fL (78.0-98.0); Mean Platelet Volume 6.9 fL (7.4-10.4); Platelet Count 372 thou/uL (130-400); RBC Distribution Width 11.2 % (11.5-14.5); Red Blood Cell (RBC) Count 5.01 mill/uL (4.20-5.40); White Blood Cell (WBC) Count 16.7 thou/uL (4.8-10.8)
[2018-07-07 18:36] LABS: Phosphorus 3.1 mg/dL (2.3-4.7)
[2018-07-07 18:37] LABS: ALT (SGPT) 34 U/L (8-55); AST (SGOT) 19 U/L (5-34); Albumin 4.9 g/dL (3.5-5.0); Alkaline Phosphatase 112 U/L (40-150); Anion Gap 20 mmol/L (10-20); BUN (Urea Nitrogen) 10 mg/dL (7.0-18.7); Bilirubin, Total 0.4 mg/dL (0.2-1.2); Calc. Creatinine Clearance 0 mL/min (70-130); Calcium 10.5 mg/dL (7.8-10.44); Carbon Dioxide 23 mmol/L (22-29); Chloride 102 mmol/L (98-107); Estimated GFR-MDRD 88; Globulin 3.1 g/dL (2.4-3.5); Glucose 155 mg/dL (70-105); Magnesium 2.1 mg/dL (1.6-2.6); Potassium 3.9 mmol/L (3.5-5.1); Sodium 141 mmol/L (136-145)
[2018-07-07] MEDS ORDERED: diphenhydrAMINE 50 MG/ML VIAL ONE (19:11)
[2018-07-07] MEDS ORDERED: Metoclopramide HCl 10 MG/2 ML VIAL ONE (19:11)
--- NOTE | 2018-07-07 19:14 | RAD ---
CHEST ONE VIEW: Indication: History of cough and diabetes. Comparison: 06-08-17 FINDINGS: Previously seen lingular pneumonia has cleared. The right lung is clear. Heart size is normal. No ple ural effusion or pneumothorax is evident. No acute osseous abnormality is evident. IMPRESSION: Resolution of the previously seen lingular pneumonia. No acute cardiopulmonary abnormality is demonst rated on the current study. POS: [facility]
[2018-07-07 19:26] LABS: Base Excess-Venous 1.1 mmol/L (-2.0 to 3.0); Bicarbonate (HCO3v) 24.2 mmol/L (22.0-28.0); CO2 Tension (PvCO2) 33.4 mmHg (40.0-50.0); Calcium, Ionized 0.97 mmol/L (See Comments:); Chloride 108 mmol/L (98-107); Hemoglobin - Calc 15.3 g/dL (12.0-16.0); Potassium 3.4 mmol/L (3.5-5.1); Sodium 142 mmol/L (138-145); T. Carbon Dioxide 25.2 mmol/L (22.0-28.0); pH (Venous) 7.468 (7.320-7.430); vO2 Saturation-calc 81.1 % (60.0-85.0)
[2018-07-07 19:33] LABS: Bilirubin Negative (Negative); Blood, Urine Negative (Negative); Clarity TURBID (Clear); Glucose, Urine (Dipstick) Negative (Negative); Leukocyte Small (Negative); Nitrite Negative (Negative); Protein, Urine (Dipstick) 30 mg/dL (Neg-Trace); Specific Gravity, Urine 1.025 (1.002-1.036); Urobilinogen 0.2 mg/dL (0.2-1.0)
[2018-07-07 19:35] LABS: Bacteria/HPF None Seen HPF (None Seen); Hyaline Casts/LPF 0-3 HYALINE CAST LPF (0-3 Hyaline); Pathc Cast-AUWi Flag 0.13 (0-2.49); Squamous Epithelial 0-3 HPF (0-3)
[2018-07-07 19:40] LABS: Pregnancy Test - Urine (BHCG) Negative (Negative); Pregu Control Background? CLEAR/WHITE (CLR/WHITE); Pregu Control Bar Appear? YES (CONTROL BAR); Specific Gravity 1.025 (1.002-1.036)
[2018-07-07] MEDS ORDERED: cefTRIAXone\\ROCEPHIN 1 GM VIAL ONE (20:18)
--- NOTE | 2018-07-07 20:49 | CT ---
CT ABDOMEN AND PELVIS WITH IV CONTRAST: Indication: Abdominal pain. Comparison: 02-21-14 FINDINGS: There is focal fatty infiltration of the liver adjacent to the falciform ligament. Spleen is normal i n size. Pancreas, adrenal glands, and kidneys are normal appearing. No free fluid or enlarged lymph nodes are evident. There is a normal appendix in the right lower quadrant. There are small follicles within the adnexa. No enlarged lymph nodes are evident. No acute osseous abnormality is evident. IMPRESSION: 1. No acute abnormality. 2. Fatty infiltration of the liver adjacent to the falciform ligament. 3. Mild amount of retained stool. POS: [facility]
[2018-07-07 20:54] LABS: Medtox Reader # READER 1
[2018-07-07 20:55] LABS: Amphetamine Not Detected (NotDetected); Barbiturates Screen Not Detected (NotDetected); Benzodiazepine Screen Not Detected (NotDetected); Cocaine Metabolite Screen Not Detected (NotDetected); Medtox Control Line Valid? VALID (VALID); Methadone Not Detected (NotDetected); Methamphetamine Not Detected (NotDetected); Opiate Screen Not Detected (NotDetected); Oxycodone Screen Not Detected (NotDetected); Phencyclidine (PCP) Not Detected (NotDetected); THC/Cannabinoid Screen Not Detected (NotDetected); Tricyclic Screen Not Detected (NotDetected)
== END 2018-07-07 22:04 | disposition home or self-care (01) ==
LOC: ERS 17:50
DX: N39.0 Urinary tract infection, site not specified (principal); R11.2 Nausea with vomiting, unspecified; I10 Essential (primary) hypertension; E78.5 Hyperlipidemia, unspecified; E10.9 Type 1 diabetes mellitus without complications; F41.9 Anxiety disorder, unspecified; F32.9 Major depressive disorder, single episode, unspecified; Z79.891 Long term (current) use of opiate analgesic
CPT/HCPCS: 36415; 36416; 71045; 74177; 80053; 80306; 81003; 81015; 81025; 82010; 82330; 82803; 83735; 84100; 84443; 85025; 87086; 87804; 96361; 96365; 96367; 96375; J0696; J1200; J2405; J2765; Q0162; Q9966

== ENCOUNTER 2019-02-17 08:28 | Emergency (ER) | payer SELFPAY ==
[2019-02-17] MEDS ORDERED: Insulin Regular 300 UNITS/3 ML VIAL ONE ×2 (09:00→10:13)
[2019-02-17 09:07] LABS: #Basophils 0.1 thou/uL (0.0-0.2); #Eosinphils 0.3 thou/uL (0.0-0.7); #Lymphocytes 2.6 thou/uL (1.20-3.40); #Monocytes 0.4 thou/uL (0.11-0.59); %Basophils 1.2 % (0.0-1.0); %Eosinophils 3.5 % (0.0-10.0); %Lymphocytes 30.9 % (21.0-51.0); %Monocytes 4.6 % (0.0-10.0); %Neutrophils 59.7 % (42.0-75.0); Hemoglobin 14.6 g/dL (12.0-16.0); Mean Corpuscular HGB CONC 35.2 g/dL (32.0-36.0); Mean Corpuscular Hemoglobin 30.5 pg (27.0-31.0); Mean Corpuscular Volume 86.4 fL (78.0-98.0); Mean Platelet Volume 7.9 fL (7.4-10.4); Platelet Count 240 thou/uL (130-400); RBC Distribution Width 10.9 % (11.5-14.5); White Blood Cell (WBC) Count 8.3 thou/uL (4.8-10.8)
[2019-02-17 09:29] LABS: ALT (SGPT) 22 U/L (8-55); AST (SGOT) 17 U/L (5-34); Albumin 4.2 g/dL (3.5-5.0); Alkaline Phosphatase 99 U/L (40-110); Anion Gap 13 mmol/L (10-20); BUN (Urea Nitrogen) 6 mg/dL (7.0-18.7); Bilirubin, Total 0.2 mg/dL (0.2-1.2); Calc. Creatinine Clearance 0 mL/min (70-130); Calcium 8.9 mg/dL (7.8-10.44); Carbon Dioxide 24 mmol/L (22-29); Chloride 97 mmol/L (98-107); Estimated GFR-MDRD 90; Globulin 2.8 g/dL (2.4-3.5); Glucose 439 mg/dL (70-105); Lipase 33 U/L (8-78); Sodium 130 mmol/L (136-145)
== END 2019-02-17 12:47 | disposition home or self-care (01) ==
LOC: ERS 08:28
DX: E10.65 Type 1 diabetes mellitus with hyperglycemia (principal); I10 Essential (primary) hypertension
CPT/HCPCS: 36415; 36416; 80053; 82010; 83690; 85025; 96361; 96374; 96376; J1815

== ENCOUNTER 2019-02-25 10:53 | Emergency (ER) | payer SELFPAY ==
[2019-02-25 12:33] LABS: #Lymphocytes 2.4 thou/uL (1.20-3.40); #Monocytes 0.3 thou/uL (0.11-0.59); %Basophils 0.2 % (0.0-1.0); %Eosinophils 0.4 % (0.0-10.0); %Lymphocytes 24.8 % (21.0-51.0); %Monocytes 3.2 % (0.0-10.0); %Neutrophils 71.4 % (42.0-75.0); Hemoglobin 15.1 g/dL (12.0-16.0); Mean Corpuscular HGB CONC 33.6 g/dL (32.0-36.0); Mean Corpuscular Hemoglobin 29.4 pg (27.0-31.0); Mean Corpuscular Volume 87.4 fL (78.0-98.0); Mean Platelet Volume 8.1 fL (7.4-10.4); Platelet Count 258 thou/uL (130-400); RBC Distribution Width 11.1 % (11.5-14.5); Red Blood Cell (RBC) Count 5.14 mill/uL (4.20-5.40); White Blood Cell (WBC) Count 9.8 thou/uL (4.8-10.8)
--- NOTE | 2019-02-25 12:44 | RAD ---
XR Chest 1 View Portable History: Hyperglycemia Comparison: Radiograph July 07, 2018 Findings: Lungs are clear. No pneumothorax. No effusion. No acute osseous abnormality. Impression: No acute intrathoracic abnormality.
[2019-02-25 12:59] LABS: ALT (SGPT) 29 U/L (8-55); AST (SGOT) 34 U/L (5-34); Albumin 4.9 g/dL (3.5-5.0); Alkaline Phosphatase 103 U/L (40-110); Anion Gap 18 mmol/L (10-20); BUN (Urea Nitrogen) 6 mg/dL (7.0-18.7); Bilirubin, Total 0.5 mg/dL (0.2-1.2); Calc. Creatinine Clearance 0 mL/min (70-130); Calcium 9.5 mg/dL (7.8-10.44); Carbon Dioxide 22 mmol/L (22-29); Chloride 97 mmol/L (98-107); Estimated GFR-MDRD 71; Globulin 3.8 g/dL (2.4-3.5); Glucose 457 mg/dL (70-105); Protein, Total 8.7 g/dL (6.0-8.3); Sodium 132 mmol/L (136-145)
[2019-02-25 13:02] LABS: BHCG - Serum Negative (NEGATIVE); Pregs Control Background? CLEAR/WHITE (CLR/WHITE); Pregs Control Bar Appear? YES (CONTROL BAR)
[2019-02-25] MEDS ORDERED: Insulin Regular 300 UNITS/3 ML VIAL ONE (13:22)
[2019-02-25 14:28] LABS: Bilirubin Negative (Negative); Blood, Urine Negative (Negative); Glucose, Urine (Dipstick) >=1000 mg/dL (Negative); Leukocyte Negative (Negative); Nitrite Negative (Negative); Protein, Urine (Dipstick) Negative (Neg-Trace); Urobilinogen 0.2 mg/dL (Less than 2)
[2019-02-25 14:33] LABS: Clarity Clear (Clear)
== END 2019-02-25 18:33 | disposition home or self-care (01) ==
LOC: ERS 10:53
DX: E10.65 Type 1 diabetes mellitus with hyperglycemia (principal); I10 Essential (primary) hypertension; F41.9 Anxiety disorder, unspecified; F32.9 Major depressive disorder, single episode, unspecified
CPT/HCPCS: 36416; 71045; 80053; 81003; 82010; 84703; 85025; 87086; 96360; 96361; J1815

== ENCOUNTER 2019-04-16 13:35 | Emergency (ER) | payer SELFPAY ==
[2019-04-16 14:50] LABS: #Eosinphils 0.3 thou/uL (0.0-0.7); #Lymphocytes 2.5 thou/uL (1.20-3.40); #Monocytes 0.5 thou/uL (0.11-0.59); #Neutrophils 4.8 thou/uL (1.40-6.50); %Basophils 0.5 % (0.0-1.0); %Eosinophils 3.1 % (0.0-10.0); %Lymphocytes 31.4 % (21.0-51.0); %Monocytes 5.7 % (0.0-10.0); %Neutrophils 59.3 % (42.0-75.0); Hemoglobin 14.3 g/dL (12.0-16.0); Mean Corpuscular HGB CONC 34.8 g/dL (32.0-36.0); Mean Corpuscular Hemoglobin 29.9 pg (27.0-31.0); Mean Platelet Volume 6.8 fL (7.4-10.4); Platelet Count 304 thou/uL (130-400); RBC Distribution Width 11.6 % (11.5-14.5); Red Blood Cell (RBC) Count 4.78 mill/uL (4.20-5.40); White Blood Cell (WBC) Count 8.1 thou/uL (4.8-10.8)
[2019-04-16 15:11] LABS: ALT (SGPT) 21 U/L (8-55); AST (SGOT) 11 U/L (5-34); Albumin 4.6 g/dL (3.5-5.0); Alkaline Phosphatase 109 U/L (40-110); Anion Gap 13 mmol/L (10-20); BUN (Urea Nitrogen) 11 mg/dL (7.0-18.7); Bilirubin, Total 0.4 mg/dL (0.2-1.2); Calc. Creatinine Clearance 0 mL/min (70-130); Calcium 9.5 mg/dL (7.8-10.44); Carbon Dioxide 24 mmol/L (22-29); Chloride 103 mmol/L (98-107); Estimated GFR-MDRD 66; Globulin 2.8 g/dL (2.4-3.5); Glucose 353 mg/dL (70-105); Potassium 4.5 mmol/L (3.5-5.1); Protein, Total 7.4 g/dL (6.0-8.3); Sodium 135 mmol/L (136-145)
[2019-04-16 16:02] LABS: Bilirubin Negative (Negative); Blood, Urine Negative (Negative); Clarity Clear (Clear); Glucose, Urine (Dipstick) Greater than 1000 mg/dL (Negative); Leukocyte Negative Leu/uL (Negative); Nitrite Negative (Negative); Protein, Urine (Dipstick) Negative (Neg-Trace); Urobilinogen Normal mg/dL (Less than 2)
[2019-04-16 16:29] LABS: Base Excess-Venous -2.4 mmol/L (-2.0 to 3.0); Bicarbonate (HCO3v) 24.5 mmol/L (22.0-28.0); Calcium, Ionized 1.18 mmol/L (See Comments:); Chloride 104 mmol/L (98-107); Hemoglobin - Calc 15.3 g/dL (12.0-16.0); Sodium 137 mmol/L (138-145)
== END 2019-04-16 17:13 | disposition home or self-care (01) ==
LOC: ERS 13:35
DX: E10.65 Type 1 diabetes mellitus with hyperglycemia (principal); F41.9 Anxiety disorder, unspecified; F32.9 Major depressive disorder, single episode, unspecified; I10 Essential (primary) hypertension
CPT/HCPCS: 36415; 36416; 80053; 81003; 82010; 82330; 82803; 85025; 96360

== ENCOUNTER 2020-03-15 01:26 | Emergency (ER) | payer SELFPAY ==
[2020-03-15 01:56] LABS: #Basophils 0.1 thou/uL (0.0-0.2); #Eosinphils 0.3 thou/uL (0.0-0.7); #Lymphocytes 4.4 thou/uL (1.20-3.40); #Monocytes 0.9 thou/uL (0.11-0.59); #Neutrophils 12.3 thou/uL (1.40-6.50); %Basophils 0.8 % (0.0-1.0); %Eosinophils 1.6 % (0.0-10.0); %Lymphocytes 24.4 % (21.0-51.0); %Monocytes 5.1 % (0.0-10.0); %Neutrophils 68.1 % (42.0-75.0); Hemoglobin 15.9 g/dL (12.0-16.0); Mean Corpuscular HGB CONC 35.3 g/dL (32.0-36.0); Mean Corpuscular Hemoglobin 32.3 pg (27.0-31.0); Mean Corpuscular Volume 91.4 fL (78.0-98.0); Mean Platelet Volume 7.2 fL (7.4-10.4); Platelet Count 300 thou/uL (130-400); RBC Distribution Width 11.4 % (11.5-14.5); Red Blood Cell (RBC) Count 4.92 mill/uL (4.20-5.40); White Blood Cell (WBC) Count 18.1 thou/uL (4.8-10.8)
[2020-03-15] MEDS ORDERED: Ketorolac Tromethamine 30 MG/ML VIAL ONE (01:58)
[2020-03-15] MEDS ORDERED: Ondansetron PF 4 MG/2 ML Vial ONE (01:58)
[2020-03-15 02:01] LABS: BHCG - Serum Negative (NEGATIVE); Pregs Control Background? CLEAR/WHITE (CLR/WHITE); Pregs Control Bar Appear? YES (CONTROL BAR)
[2020-03-15 02:08] LABS: Actual Bicarbonate (HCO3v) 24 mEq/L (22-28); Analyzer IN Cardio ER; Base Excess -0.1 mEq/L (-2.0 to +3.0); Calcium, Ionized (venous) 1.08 mmol/L (1.16-1.32); Chloride (VBG) 102 mmol/L (98-106); Hemoglobin (Hb) 15.5 g/dL (11.7-15.5); Potassium (VBG) 3.66 mmol/L (3.70-5.30); Sodium 134.8 mmol/L (133-146); pH (venous) 7.43 (7.32-7.43)
[2020-03-15 02:17] LABS: ALT (SGPT) 21 U/L (8-55); AST (SGOT) 15 U/L (5-34); Albumin 4.4 g/dL (3.5-5.0); Alkaline Phosphatase 97 U/L (40-110); Anion Gap 16 mmol/L (10-20); BUN (Urea Nitrogen) 11 mg/dL (7.0-18.7); Bilirubin, Total 0.3 mg/dL (0.2-1.2); Calc. Creatinine Clearance 0 mL/min (70-130); Carbon Dioxide 22 mmol/L (22-29); Chloride 102 mmol/L (98-107); Estimated GFR-MDRD Greater than 90; Glucose 382 mg/dL (70-105); Lipase 39 U/L (8-78); Potassium 3.8 mmol/L (3.5-5.1); Protein, Total 7.4 g/dL (6.0-8.3); Sodium 136 mmol/L (136-145)
[2020-03-15 02:30] LABS: Bilirubin Negative (Negative); Blood, Urine Negative (Negative); Clarity Clear (Clear); Glucose, Urine (Dipstick) Greater than 1000 mg/dL (Negative); Ketone, Urine 20 mg/dL (Negative); Leukocyte Negative Leu/uL (Negative); Nitrite Negative (Negative); Protein, Urine (Dipstick) 20 mg/dL (Neg-Trace); Specific Gravity, Urine 1.044 (1.002-1.036); Urobilinogen Normal mg/dL (Less than 2); pH, Urine 7.5 (5.0-9.0)
[2020-03-15] MEDS ORDERED: Insulin Glargine 40 UNITS in Pre-Filled Syringe 1 EACH SC SCH (03:00)
== END 2020-03-15 03:15 | disposition home or self-care (01) ==
LOC: ERS 01:26
DX: E10.65 Type 1 diabetes mellitus with hyperglycemia (principal); R11.2 Nausea with vomiting, unspecified; Z79.899 Other long term (current) drug therapy; Z79.4 Long term (current) use of insulin; I10 Essential (primary) hypertension; F32.9 Major depressive disorder, single episode, unspecified; F41.9 Anxiety disorder, unspecified
CPT/HCPCS: 36416; 80053; 81003; 82010; 82805; 83690; 84703; 85025; 93005; 96374; 96375; J1815; J1885; J2405

== ENCOUNTER 2020-08-22 21:10 | Inpatient (IN) | payer SELFPAY ==
[2020-08-22 21:43] LABS: Mean Corpuscular HGB CONC 33.8 g/dL (32.0-36.0); Mean Corpuscular Volume 91.6 fL (78.0-98.0); RBC Distribution Width 12.6 % (11.5-14.5); Red Blood Cell (RBC) Count 4.86 mill/uL (4.20-5.40)
[2020-08-22 21:46] LABS: BHCG - Serum Negative (NEGATIVE); Pregs Control Background? CLEAR/WHITE (CLR/WHITE); Pregs Control Bar Appear? YES (CONTROL BAR)
[2020-08-22 22:08] LABS: ALT (SGPT) 27 U/L (8-55); AST (SGOT) 13 U/L (5-34); Albumin 4.3 g/dL (3.5-5.0); Alkaline Phosphatase 159 U/L (40-110); Anion Gap 16 mmol/L (10-20); BUN (Urea Nitrogen) 7 mg/dL (7.0-18.7); Bilirubin, Total 0.5 mg/dL (0.2-1.2); Calc. Creatinine Clearance 0 mL/min (70-130); Calcium 9.2 mg/dL (7.8-10.44); Carbon Dioxide 23 mmol/L (22-29); Chloride 99 mmol/L (98-107); Globulin 3.4 g/dL (2.4-3.5); Glucose 468 mg/dL (70-105); Potassium 3.8 mmol/L (3.5-5.1); Protein, Total 7.7 g/dL (6.0-8.3); Sodium 134 mmol/L (136-145)
[2020-08-22 22:12] LABS: Band 4 % (5-11); Lymphocytes 29 % (21-51); MDiff Complete? YES; Mean Platelet Volume 7.4 fL (7.4-10.4); Monocytes 2 % (0-10); Neutrophil 65 % (42-75); Platelet Count 306 thou/uL (130-400); White Blood Cell (WBC) Count 22.9 thou/uL (4.8-10.8)
[2020-08-22] MEDS ORDERED: Ibuprofen 200 MG TAB ONE (23:02)
[2020-08-22] MEDS ORDERED: Acetaminophen 500 MG TAB ONE (23:02)
[2020-08-22 23:37] LABS: Bacteria/HPF 1+ HPF (None Seen); Bilirubin Negative (Negative); Blood, Urine 1+ (Negative); Clarity Clear (Clear); Glucose, Urine (Dipstick) Greater than 1000 mg/dL (Negative); Ketone, Urine 40 mg/dL (Negative); Leukocyte 250 Leu/uL (Negative); Nitrite Negative (Negative); Protein, Urine (Dipstick) Negative (Neg-Trace); Specific Gravity, Urine 1.041 (1.002-1.036); Squamous Epithelial 0-3 HPF (0-3); Urobilinogen Normal mg/dL (Less than 2); WBC/HPF 21-50 HPF (0-3); pH, Urine 6.5 (5.0-9.0)
[2020-08-22] MEDS ORDERED: Vancomycin 1 GM/200 ML BAG ONE (23:46)
[2020-08-22] MEDS ORDERED: cefTRIAXone\\ROCEPHIN 1 GM VIAL ONE (23:46)
[2020-08-23] MEDS ORDERED: Ondansetron PF 4 MG/2 ML Vial ONE (02:27)
[2020-08-23 02:32] LABS: SARS-CoV-2 NAA Rapid Test Not Detected (NotDetected)
[2020-08-23] MEDS ORDERED: Acetaminophen 325 MG TAB PO PRN (03:00)
[2020-08-23] MEDS ORDERED: Ondansetron PF 4 MG/2 ML Vial IVP PRN (03:00)
[2020-08-23] MEDS ORDERED: Ondansetron ODT 4 MG TAB SL PRN (03:00)
[2020-08-23] MEDS ORDERED: Sodium Chloride 0.9% 1,000 ML IV SCH (03:00)
[2020-08-23] MEDS ORDERED: Dextrose 50% Abboject 50 ML SYRINGE SLOW IVP PRN (03:37)
[2020-08-23] MEDS ORDERED: Dextrose 5% in Water 1,000 ML IV PRN (03:37)
[2020-08-23] MEDS: HumaLOG 300 UNITS/3 ML VIAL SC PRN ×3 (03:58→20:06)
[2020-08-23 04:06] VITALS: BMI 24.8
[2020-08-23] MEDS: FLUoxetine HCl 10 MG CAP PO SCH ×2 (08:59→20:06)
[2020-08-23] MEDS ORDERED: Non-Formulary Item 1 EACH (Insulin Detemir [Levemir] 100 UNIT/ML Vial) SC SCH (09:00)
[2020-08-23] MEDS: Topiramate 25 MG TAB PO SCH (09:00)
[2020-08-23] MEDS: predniSONE 20 MG TAB PO SCH (09:00)
[2020-08-23] MEDS: Lantus 1000 UNITS/10 ML VIAL SC SCH ×2 (09:01→20:06)
[2020-08-23] MEDS: Enoxaparin Sodium 40 MG/0.4 ML SYRINGE SC SCH (09:01)
[2020-08-23] MEDS: cefTRIAXone\\ROCEPHIN 1 GM in Sodium Chloride 0.9% 100 ML IVPB SCH (20:06)
[2020-08-23] MEDS ORDERED: Guaifenesin DM 100-10/5 ML UDCUP PO PRN (21:32)
[2020-08-24] MEDS: HumaLOG 300 UNITS/3 ML VIAL SC PRN ×2 (06:33→18:53)
[2020-08-24 06:52] LABS: #Basophils 0.1 thou/uL (0.0-0.2); #Eosinphils 0.2 thou/uL (0.0-0.7); #Lymphocytes 5.2 thou/uL (1.20-3.40); #Neutrophils 7.7 thou/uL (1.40-6.50); %Basophils 0.6 % (0.0-1.0); %Eosinophils 1.2 % (0.0-10.0); %Monocytes 6.9 % (0.0-10.0); %Neutrophils 54.3 % (42.0-75.0); Hemoglobin 13.1 g/dL (12.0-16.0); Mean Corpuscular HGB CONC 34.2 g/dL (32.0-36.0); Mean Corpuscular Hemoglobin 31.5 pg (27.0-31.0); Mean Corpuscular Volume 92.1 fL (78.0-98.0); Mean Platelet Volume 7.5 fL (7.4-10.4); Platelet Count 261 thou/uL (130-400); RBC Distribution Width 12.7 % (11.5-14.5); Red Blood Cell (RBC) Count 4.16 mill/uL (4.20-5.40); White Blood Cell (WBC) Count 14.1 thou/uL (4.8-10.8)
[2020-08-24 07:15] LABS: Anion Gap 13 mmol/L (10-20); BUN (Urea Nitrogen) 8 mg/dL (7.0-18.7); Calc. Creatinine Clearance 133 mL/min (70-130); Calcium 9.3 mg/dL (7.8-10.44); Carbon Dioxide 17 mmol/L (22-29); Chloride 109 mmol/L (98-107); Glucose 303 mg/dL (70-105); Potassium 3.5 mmol/L (3.5-5.1); Sodium 135 mmol/L (136-145)
[2020-08-24] MEDS: Topiramate 25 MG TAB PO SCH (07:50)
[2020-08-24] MEDS: predniSONE 20 MG TAB PO SCH (07:50)
[2020-08-24] MEDS: FLUoxetine HCl 10 MG CAP PO SCH ×2 (07:51→21:26)
[2020-08-24] MEDS: Enoxaparin Sodium 40 MG/0.4 ML SYRINGE SC SCH (07:51)
[2020-08-24] MEDS: Lantus 1000 UNITS/10 ML VIAL SC SCH ×2 (07:52→21:27)
[2020-08-24] MEDS ORDERED: Benzonatate 100 MG CAP PO PRN (16:23)
[2020-08-24] MEDS: Sodium Chloride 0.9% 1,000 ML IV SCH (16:40)
[2020-08-24] MEDS: cefTRIAXone\\ROCEPHIN 1 GM in Sodium Chloride 0.9% 100 ML IVPB SCH (21:27)
[2020-08-24] MEDS: guaiFENesin ER 600 MG TAB PO SCH (21:27)
[2020-08-25] MEDS: Sodium Chloride 0.9% 1,000 ML IV SCH ×2 (01:16→11:01)
[2020-08-25] MEDS: FLUoxetine HCl 10 MG CAP PO SCH (07:55)
[2020-08-25] MEDS: Topiramate 25 MG TAB PO SCH (07:56)
[2020-08-25] MEDS: predniSONE 20 MG TAB PO SCH (07:56)
[2020-08-25] MEDS: guaiFENesin ER 600 MG TAB PO SCH (07:56)
[2020-08-25] MEDS: Lantus 1000 UNITS/10 ML VIAL SC SCH (07:57)
[2020-08-25] MEDS: Enoxaparin Sodium 40 MG/0.4 ML SYRINGE SC SCH (07:57)
[2020-08-25] MEDS: HumaLOG 300 UNITS/3 ML VIAL SC PRN (12:20)
[2020-08-25 18:56] VITALS: BP 121/80; TEMP 97.2
== END 2020-08-25 18:14 | disposition home or self-care (01) | DRG 871 ==
LOC: ERS 21:10 → T4-B 08-23 01:30 → OBSVTOIN 08-24 16:10
PROVIDERS: ADMIT Student in an Organized Health Care Education/Training Program; ATTEND Family Medicine
DX: A41.51 Sepsis due to Escherichia coli [E. coli] (principal); E10.10 Type 1 diabetes mellitus with ketoacidosis without coma; N39.0 Urinary tract infection, site not specified; J45.21 Mild intermittent asthma with (acute) exacerbation; I10 Essential (primary) hypertension; Z20.822 Contact with and (suspected) exposure to COVID-19; F39 Unspecified mood [affective] disorder; Z79.4 Long term (current) use of insulin
CPT/HCPCS: 0240U; 36415; 36416; 71045; 80048; 80053; 81003; 81015; 82010; 83605; 84703; 85025; 87040; 87077; 87086; 87186; 87635; 93005; 93010; 94640; 96365; 96368; 96372; 96375; 96376; G0378; J0696; J1650; J1815; J2405; J3370; J3490; J7512; J7620; U0003; U0005

== ENCOUNTER 2021-01-18 21:18 | Emergency (ER) | payer SELFPAY ==
[2021-01-18 22:28] LABS: #Basophils 0.2 thou/uL (0.0-0.2); #Eosinphils 0.4 thou/uL (0.0-0.7); #Lymphocytes 4.7 thou/uL (1.20-3.40); #Monocytes 0.6 thou/uL (0.11-0.59); #Neutrophils 4.3 thou/uL (1.40-6.50); %Basophils 1.5 % (0.0-1.0); %Eosinophils 4.1 % (0.0-10.0); %Lymphocytes 46.3 % (21.0-51.0); %Monocytes 5.7 % (0.0-10.0); %Neutrophils 42.4 % (42.0-75.0); Mean Corpuscular Hemoglobin 32.2 pg (27.0-31.0); Mean Corpuscular Volume 94.8 fL (78.0-98.0); Mean Platelet Volume 6.8 fL (7.4-10.4); Platelet Count 315 thou/uL (130-400); RBC Distribution Width 11.7 % (11.5-14.5); Red Blood Cell (RBC) Count 4.96 mill/uL (4.20-5.40); White Blood Cell (WBC) Count 10.2 thou/uL (4.8-10.8)
[2021-01-18 22:51] LABS: ALT (SGPT) 21 U/L (8-55); AST (SGOT) 15 U/L (5-34); Albumin 4.8 g/dL (3.5-5.0); Alkaline Phosphatase 88 U/L (40-110); Anion Gap 13 mmol/L (10-20); BUN (Urea Nitrogen) 15 mg/dL (7.0-18.7); Bilirubin, Total 0.4 mg/dL (0.2-1.2); Calc. Creatinine Clearance 0 mL/min (70-130); Calcium 10.3 mg/dL (7.8-10.44); Carbon Dioxide 31 mmol/L (22-29); Chloride 99 mmol/L (98-107); Globulin 2.9 g/dL (2.4-3.5); Glucose 214 mg/dL (70-105); Lipase 51 U/L (8-78); Potassium 3.9 mmol/L (3.5-5.1); Protein, Total 7.7 g/dL (6.0-8.3); Sodium 139 mmol/L (136-145)
== END 2021-01-18 23:59 | disposition left against medical advice (07) ==
LOC: ERS 21:18
DX: Z53.21 Procedure and treatment not carried out due to patient leaving prior to being seen by health care provider (principal)
CPT/HCPCS: 36415; 36416; 80053; 82010; 83690; 85025

== ENCOUNTER 2022-08-04 21:04 | Emergency (ER) | payer SELFPAY ==
[2022-08-04] MEDS ORDERED: Dexamethasone 10 MG/ML VIAL ONE (22:08)
[2022-08-04] MEDS ORDERED: HYDROcodone/Acetaminophen 5/325 mg Tablet ONE (22:08)
== END 2022-08-04 23:49 | disposition home or self-care (01) ==
LOC: ERS 21:04
DX: J02.9 Acute pharyngitis, unspecified (principal); J44.9 Chronic obstructive pulmonary disease, unspecified; E10.22 Type 1 diabetes mellitus with diabetic chronic kidney disease; I12.9 Hypertensive chronic kidney disease with stage 1 through stage 4 chronic kidney disease, or unspecified chronic kidney disease; N18.1 Chronic kidney disease, stage 1; F17.290 Nicotine dependence, other tobacco product, uncomplicated; Z79.4 Long term (current) use of insulin; Z79.899 Other long term (current) drug therapy
CPT/HCPCS: 87081; 87430; 96372; 99284; J1100